=== PATIENT | male | born 1975 | race Two or more races ===

== ENCOUNTER 2016-10-03 23:50 | Emergency (ER) | payer OTHER ==
--- NOTE | 2016-10-04 00:25 | ED Physician Documentation ---
History of Present Illness - Stated complaint Stated Complaint: MALE - Chief complaint Chief Complaint: General - History obtained from History obtained from: Patient - History of Present Illness Timing: Today Pain level now: 10 Improved by: no ameliorating factors Worsened by: no exacerbating factors - Additonal information Additional information: left groin and left testicular pain since 8 PM tonight. Had similar episode yesterday that resolved spontaneously. Denies injury Review of Systems Constitutional: denies: Fever, Chills, Sweats Cardiac: reports: Reviewed and negative Respiratory: reports: Reviewed and negative GI: reports: Nausea. denies: Abdominal Pain, Vomiting, Constipation, Diarrhea : reports: Testicular pain. denies: Dysuria, Frequency, Hematuria Musculoskeletal: denies: Back pain PD PAST MEDICAL HISTORY - Past Medical History Past Medical History: Yes Endocrine/Autoimmune: HyPOthyroidism Psych: Depression, Anxiety, Obsessive compulsive disorder - Past Surgical History Past Surgical History: Yes General: Cholecystectomy HEENT: Tonsil/Adenoidectomy - Present Medications Home Medications: Ambulatory Orders Medication Instructions Recorded Confirmed Alprazolam [Xanax] 0.5 mg PO TID 10/04/16 10/04/16 Buspirone HCl 30 mg PO BID 10/04/16 10/04/16 DULoxetine [Cymbalta] 30 mg PO BID 10/04/16 10/04/16 Dextroamphetamine/Amphetamine 20 mg PO DAILY 10/04/16 10/04/16 [Adderall 20 mg Tablet] Lamotrigine [Lamictal] 200 mg PO DAILY 10/04/16 10/04/16 Levothyroxine Sodium 25 mcg PO DAILY 10/04/16 10/04/16 cloNIDine [Catapres] 0.1 mg PO QPM 10/04/16 10/04/16 oxyCODONE/ACET 5/325 [Percocet 5 1 - 2 each PO Q6H PRN #12 tablet 10/04/16 mg/325 mg] - Allergies Allergies/Adverse Reactions: Allergies Allergy/AdvReac Type Severity Reaction Status Date / Time levofloxacin [From Levaquin] Allergy Hives Verified 10/04/16 00:28 - Living Situation Living Situation: reports: With spouse/s.o. Living Arrangement: reports: At home PD ED PE NORMAL - Vitals Vital signs reviewed: Yes - General General: Alert and oriented X 3, Well developed/nourished, Other (mild-moderate painful distress) - HEENT HEENT: Moist mucous membranes - Cardiac Cardiac: RRR, No murmur - Respiratory Respiratory: No respiratory distress, Clear bilaterally - Abdomen Abdomen: Soft, Non tender, Non distended - Back Back: No CVA TTP - Derm Derm: Normal color, Warm and dry, No rash - Extremities Extremities: Normal ROM s pain PD ED PE EXPANDED - Male Male : Normal Exam, Testes descended nivia, Normal lie/cremastaric, Tenderness ( mild left testicular tenderness), Concrete Block Layer present. No: Skin lesions, Testicular Mass Results - Vitals Vitals: Vital Signs - 24 hr 10/03/16 10/04/16 10/04/16 23:54 00:00 00:51 Temperature 36.0 C L 36.8 C Heart Rate 51 L 53 L 63 Respiratory 18 20 16 Rate Blood Pressure 139/91 H 139/94 H 136/72 H O2 Saturation 100 100 100 10/04/16 10/04/16 10/04/16 01:05 01:30 03:31 Temperature Heart Rate 57 L 63 51 L Respiratory 16 16 16 Rate Blood Pressure 116/71 132/74 H 141/94 H O2 Saturation 100 100 98 10/04/16 03:50 Temperature 36.5 C Heart Rate 68 Respiratory 16 Rate Blood Pressure 143/83 H O2 Saturation 100 Oxygen O2 Source Room air - Labs Labs: Laboratory Tests 10/04/16 10/04/16 10/04/16 00:05 00:25 00:25 WBC 11.3 H RBC 4.26 L Hgb 13.6 L Hct 39.3 L MCV 92.2 MCH 32.0 H MCHC 34.8 RDW 13.3 Plt Count 313 MPV 6.5 L Neut # 7.8 H Lymph # 2.4 Clarke # 0.9 Eos # 0.1 Baso # 0.1 Absolute Nucleated RBC 0.00 Nucleated RBCs 0.0 Sodium 139 Potassium 3.5 Chloride 104 Carbon Dioxide 24 Anion Gap 11.0 BUN 22 H Creatinine 1.4 H Estimated GFR (MDRD) 55 L Glucose 108 H Calcium 9.4 Total Bilirubin 0.4 AST 22 ALT 21 Alkaline Phosphatase 71 Total Protein 6.9 Albumin 4.4 Globulin 2.5 Albumin/Globulin Ratio 1.8 Lipase 51 Urine Color YELLOW Urine Clarity CLEAR Urine pH 6.0 Ur Specific [place] >=1.030 H Urine Protein NEGATIVE Urine Glucose (UA) NEGATIVE Urine Ketones TRACE Urine Occult Blood NEGATIVE Urine Nitrite NEGATIVE Urine Bilirubin NEGATIVE Urine Urobilinogen 0.2 (NORMAL) Ur Leukocyte Esterase NEGATIVE Ur Microscopic Review NOT INDICATED Urine Culture Comments NOT INDICATED - Rads (name of study) testicular US Radiology: Prelim report reviewed, See rad report PD MEDICAL DECISION MAKING - ED course Complexity details: reviewed results, re-evaluated patient, considered differential, d/w patient, d/w family ED course: minimal relief with dilaudid IV 1mg x 2 doses, but patient reported near- resolution subsequent to IV toradol (1 out of 0-10 pain). No apparent etiology on emergent testing and reevaluation (re-exam of left groin and abdomen) reveals no tenderness. Departure - Departure Disposition: 01 Home, Self Care Clinical Impression: Left groin pain Condition: Good Instructions: ED Testicular Pain [facility] Follow-Up: Suzette Kay DO [Primary Care Provider] - (Call to arrange for next available appointment) Prescriptions: oxyCODONE/ACET 5/325 [Percocet 5 mg/325 mg] 1 - 2 each PO Q6H PRN #12 tablet PRN Reason: Pain Discharge Date/Time: 10/04/16 04:17
[2016-10-04 00:37] LABS: BASOPHILS # (AUTO) 0.1 10^3/uL (0.0-0.1); BASOPHILS % (AUTO) 0.6 %; EOSINOPHILS # (AUTO) 0.1 10^3/uL (0.0-0.7); EOSINOPHILS % (AUTO) 0.7 %; HCT - HEMATOCRIT 39.3 % (42.0-52.0); HGB - HEMOGLOBIN 13.6 g/dL (14.0-18.0); LYMPHOCYTES # (AUTO) 2.4 10^3/uL (1.5-3.5); LYMPHOCYTES % (AUTO) 21.1 %; MEAN CORPUSCULAR HGB CONC 34.8 g/dL (32.0-36.0); MEAN CORPUSCULAR VOLUME 92.2 fL (80.0-94.0); MEAN PLATELET VOLUME 6.5 fL (7.4-11.4); MONOCYTES # (AUTO) 0.9 10^3/uL (0.0-1.0); MONOCYTES % (AUTO) 8.3 %; NEUTROPHILS # (AUTO) 7.8 10^3/uL (1.5-6.6); NEUTROPHILS % (AUTO) 69.3 %; RED BLOOD COUNT 4.26 10^6/uL (4.70-6.10); RED CELL DISTRIBUTION WIDTH 13.3 % (12.0-15.0); UNCORRECTED WHITE BLOOD COUNT 11.3 x10^3/uL; WHITE BLOOD COUNT 11.3 x10^3/uL (4.8-10.8)
[2016-10-04] MEDS ORDERED: ONDANSETRON 4 MG/2 ML VIAL IVP STA (00:38)
[2016-10-04] MEDS ORDERED: HYDROmorphone 1 MG/ML SYRINGE IVP STA ×2 (00:38→01:36)
[2016-10-04] MEDS ORDERED: HYDROmorphone 1 MG/ML SYRINGE ONE ×2 (00:41→01:33)
[2016-10-04] MEDS ORDERED: ONDANSETRON 4 MG/2 ML VIAL ONE (00:42)
[2016-10-04 00:43] LABS: ALBUMIN/GLOBULIN RATIO 1.8 (1.0-2.2); BILIRUBIN,TOTAL 0.4 mg/dL (0.2-1.0); CALCIUM 9.4 mg/dL (8.5-10.3); CREATININE 1.4 mg/dL (0.6-1.2); POTASSIUM 3.5 mmol/L (3.5-5.0); TOTAL PROTEIN 6.9 g/dL (6.7-8.2)
[2016-10-04 00:44] LABS: BILIRUBIN,URINE NEGATIVE (NEGATIVE)
[2016-10-04 00:46] LABS: UA CHARGE (STRIP ONLY) YES; UR CULTURE IF IND NOT INDICATED
[2016-10-04] MEDS ORDERED: SODIUM CHLORIDE 0.9% 1,000 ML IV ONE (00:48)
[2016-10-04] MEDS ORDERED: KETOROLAC 30 MG/ML VIAL ONE (03:27)
[2016-10-04] MEDS ORDERED: KETOROLAC 60 MG/2 ML VIAL IVP STA (03:27)
--- NOTE | 2016-10-04 03:28 | Ultrasound Preliminary Report ---
Exam: US Testicle w/Doppler IMPRESSION: 1. Testes appear normal. No torsion seen. 2. Small left hydrocele. [facility] SITE ID: [id number]
--- NOTE | 2016-10-04 03:31 | Ultrasound Report ---
EXAM: SCROTAL ULTRASOUND EXAM DATE: 10/04/2016 01:31 AM. CLINICAL HISTORY: Left testicular pain. COMPARISON: None. TECHNIQUE: Real-time scanning was performed with static images obtained, including color-flow. FINDINGS: Right: Testis: 5.4 x 2.7 x 3.4 cm. Normal size and echotexture. No mass, calcification, or abnormal blood fl ow. Epididymis: 1.1 x 1.0 cm. Normal size and echotexture. No mass or abnormal blood flow. Cyst measuring 5 x 4 x 4 mm. Hydrocele: None. Varicocele: None. Left: Testis: 4.8 x 3.2 x 3.0 cm. Normal size and echotexture. No mass, calcification, or abnormal blood fl ow. Epididymis: 1.8 x 0.8 cm. Normal size and echotexture. No mass or abnormal blood flow. Hydrocele: Small amount. Varicocele: None. Other: None. IMPRESSION: 1. Testes appear normal. No torsion seen. 2. Small left hydrocele. [facility] Referring Provider Line: [phone] SITE ID: [id number]
[2016-10-04 03:53] VITALS: BP 143/83
[2016-10-04] MEDS ORDERED: oxyCODONE/ACET 5/325 Prepack 4 PO ONE (04:02)
[2016-10-04] MEDS ORDERED: oxyCODONE/ACET 5/325 Prepack 4 PO STA (04:22)
== END 2016-10-04 04:17 | disposition home or self-care (01) ==
LOC: ED 23:50
DX: R10.32 Left lower quadrant pain (principal); N50.812 Left testicular pain; R11.0 Nausea; E03.9 Hypothyroidism, unspecified
CPT/HCPCS: 36415; 76870; 80053; 81003; 83690; 85025; 93975; 96361; 96374; 96375; 96376; 99284; J1170; 81001; 87086

== ENCOUNTER 2016-10-05 04:38 | Outpatient (CLI) | payer OTHER | END 2016-10-05 04:39 | disposition critical access hospital (66) | DX: R10.30 Lower abdominal pain, unspecified (principal) | CPT/HCPCS: A0425; A0429 ==

== ENCOUNTER 2016-10-05 05:03 | Emergency (ER) | payer OTHER ==
[2016-10-05] MEDS ORDERED: KETOROLAC 30 MG/ML VIAL ONE (06:00)
[2016-10-05] MEDS ORDERED: ONDANSETRON 4 MG/2 ML VIAL ONE (06:01)
[2016-10-05] MEDS ORDERED: HYDROmorphone 1 MG/ML SYRINGE ONE (06:01)
[2016-10-05] MEDS: HYDROmorphone 1 MG/ML SYRINGE IVP STA (06:02)
[2016-10-05] MEDS: SODIUM CHLORIDE 0.9% 1,000 ML IV ONE (06:03)
[2016-10-05] MEDS: KETOROLAC 60 MG/2 ML VIAL IVP STA (06:03)
[2016-10-05] MEDS: ONDANSETRON 4 MG/2 ML VIAL IVP STA (06:03)
== END 2016-10-05 07:54 | disposition home or self-care (01) ==
DX: N20.1 Calculus of ureter (principal); E03.9 Hypothyroidism, unspecified; Z90.49 Acquired absence of other specified parts of digestive tract; Z98.84 Bariatric surgery status
CPT/HCPCS: 36415; 74176; 80053; 81003; 83690; 85025; 96361; 96374; 96375; 99284; 99285; J1170

== ENCOUNTER 2019-01-12 07:04 | Outpatient (CLI) | payer OTHER ==
--- NOTE | 2019-01-12 14:01 | CT Report ---
Reason: NODULE ON LUNG,RIGTH 6 MM NODULE Procedure Date: 01/12/2019 Accession Number: [id number] / [id number] Procedure: CT - CHEST WO CPT Code: FULL RESULT: EXAM: CT CHEST EXAM DATE: 01/12/2019 07:45 AM. CLINICAL HISTORY: Nodule on lung, right 6 mm nodule. COMPARISONS: None. TECHNIQUE: Routine helical CT imaging was performed through the chest. IV contrast: None. Reconstructions: Coronal and sagittal. In accordance with CT protocol optimization, one or more of the following dose reduction techniques were utilized for this exam: automated exposure control, adjustment of mA and/or KV based on patient size, or use of iterative reconstructive technique. FINDINGS: Lungs/Pleura: There is no significant background pulmonary emphysema. There is no lobar consolidation. There is no airway thickening or bronchiectasis. There is no pleural effusion or pneumothorax. There are bilateral pulmonary nodules which measure up to 5 mm. Right upper lobe: 4 mm nodule image 18 series 4 perifissural. 4 mm nodule image 32. 2 mm nodule image 31. Right middle lobe: 3 mm nodule image 28. 4 mm nodule image 33. 5 mm nodule image 32. Right lower lobe: 2 mm nodule image 35. 4 mm nodule image 33. Left upper lobe: 3 mm nodule image 9. Left lower lobe: 3 mm nodule, major fissure, image 28. 3 mm nodule image 41. 3 mm nodule image 43. 2 mm nodule image 45. Mediastinum: There are prominent mediastinal lymph nodes which measure up to 1.1 cm in short axis as seen on image 32 series 6 in a pretracheal node. There is no hilar lymphadenopathy. There is no pericardial effusion. Bones: Unremarkable. Visualized Abdomen: Status post cholecystectomy and gastric surgery. Other: None. IMPRESSION: Pulmonary nodules measuring up to 5 mm as described. Recommend follow-up of the described nodule(s) according to the following guidelines: Fleischner Society Recommendations 2017 MacMahon et al. Radiology 2017 Solid Nodules-Low Risk Patients: <6 mm (single or multiple) - No routine follow-up* Solid Nodules-High Risk Patients: <6 mm (single or multiple) -Optional CT at 12 months* *Nodules < 6mm do not require routine follow-up, but suspicious nodule morphology, upper lobe location, or both may warrant 12 month follow-up [facility]
== END 2019-01-12 07:05 | disposition home or self-care (01) ==
LOC: DI 07:04
PROVIDERS: ATTEND Specialist
DX: R91.8 Other nonspecific abnormal finding of lung field (principal)
CPT/HCPCS: 71250

== ENCOUNTER 2019-05-18 07:59 | Outpatient (CLI) | payer OTHER ==
--- NOTE | 2019-05-18 17:28 | XRAY Report ---
Reason: CHRONIC LOW BACK PAIN Procedure Date: 05/18/2019 Accession Number: [id number] / [id number] Procedure: XR - Thoracic Spine 2 View CPT Code: FULL RESULT: EXAM: THORACIC SPINE RADIOGRAPHY EXAM DATE: 05/18/2019 08:43 AM. CLINICAL HISTORY: CHRONIC BACK PAIN. COMPARISON: CHEST W/O 01/12/2019 7:12 AM. TECHNIQUE: 3 views. FINDINGS: Alignment: No spondylolisthesis. Minimal dextro scoliosis apex T7. Bones: No fractures or bone lesions. Degenerative vertebral body spurring present. Disks: Normal. Disk heights are maintained. Soft Tissues: Right upper quadrant surgical clips. IMPRESSION: Mild degenerative change thoracic spine without superimposed acute findings. [facility]
--- NOTE | 2019-05-19 10:50 | XRAY Report ---
Reason: CHRONIC LOW BACK PAIN Procedure Date: 05/18/2019 Accession Number: [id number] / [id number] Procedure: XR - Lumbar Spine 2 View CPT Code: FULL RESULT: EXAM: LUMBOSACRAL SPINE RADIOGRAPHY EXAM DATE: 05/18/2019 08:44 AM. CLINICAL HISTORY: Chronic low back pain. COMPARISONS: CT ABDOMEN PELVIS WO CON 12/27/2018 10:14 AM. TECHNIQUE: 3 views. FINDINGS: Alignment: . No spondylolisthesis or scoliosis. Bones: Five [id number] lumbar vertebral bodies are present. No fractures or bone lesions. Disks: Normal. Disk heights are maintained. Facets: Moderate hypertrophic changes at the facet articulations bilaterally L5-S1 Sacroiliac Joints: Unremarkable. Soft Tissues: Normal. The visualized bowel gas pattern is normal. Surgical clips indicate previous cholecystectomy. IMPRESSION: Moderate degenerative changes at the bilateral facet articulations of L5-S1. Examination elsewhere unremarkable. [facility]
== END 2019-05-18 08:00 | disposition home or self-care (01) ==
LOC: DI 07:59
PROVIDERS: ATTEND Physician Assistant Medical
DX: M47.817 Spondylosis without myelopathy or radiculopathy, lumbosacral region (principal)
CPT/HCPCS: 72070; 72100

== ENCOUNTER 2019-05-22 21:19 | Emergency (ER) | payer OTHER ==
--- NOTE | 2019-05-22 23:04 | ED Physician Documentation ---
PD HPI SKIN - Stated complaint Stated Complaint: MED REACTION, HIGH BP - Chief complaint Chief Complaint: Allergic Rx - History obtained from History obtained from: Patient - History of Present Illness Timing - onset: Today Timing - duration: Hours (10) Timing - details: Abrupt onset Pain level now: 9 Location: Other (Circumferential around the head and down the back of the neck) Quality / character: No: Itchy, Painful, Burning, Discolored, Raised, Vesicular, Crusted, Swelling, Draining, Other Associated symptoms: Headache. No: Fever, Myalgias Similar symptoms before: Has not had sx before Recently seen: Not recently seen - Additional information Additional information: This a 44-year-old man who presents with his complaints that he had a severe headache that developed today around noon. He was standing talking with a friend outside when it started and he said it felt like a "brain freeze". It encompassed his entire head and is continued to be a throbbing spasming type pain that he rates it a 9 out of 10 ever since then. Is now radiating down the back of his neck as well. He took his blood pressure this evening is 164/100 and repeated at 145/96 and called his primary care provider told him to come into the emergency department to be evaluated. He was thinking it might be a reaction to meloxicam which she took for the first time about 4 hours prior to the onset of these symptoms. He denied any blurry vision has not had any tinnitus. No nausea or vomiting. Denies numbness or tingling or weakness into the arms or legs. Does have some mild photophobia. No fever and no recent illness. Denies prior history of headaches and no family history of headache or aneurysm. Review of Systems Constitutional: denies: Fever Eyes: reports: Photophobia. denies: Loss of vision Ears: denies: Loss of hearing, Tinnitus/ringing Nose: denies: Rhinorrhea / runny nose, Congestion Throat: denies: Sore throat Cardiac: denies: Palpitations Respiratory: denies: Dyspnea, Cough GI: denies: Nausea, Vomiting : denies: Dysuria Musculoskeletal: reports: Neck pain Neurologic: reports: Headache, Head injury (Sometime last week he got hit in the right forehead with a tree branch as he was cutting firewood). denies: Generalized weakness, Focal weakness, Numbness, Difficulty speaking, Near syncope, Syncope, LOC PD PAST MEDICAL HISTORY - Past Medical History Past Medical History: Yes Cardiovascular: None Respiratory: None Neuro: None Endocrine/Autoimmune: HyPOthyroidism GI: Other : Kidney stones HEENT: None Psych: Depression, Anxiety, Obsessive compulsive disorder Musculoskeletal: None Derm: None - Past Surgical History Past Surgical History: Yes General: Cholecystectomy, Gastric surgery HEENT: Tonsil/Adenoidectomy - Present Medications Home Medications: Ambulatory Orders Medication Instructions Recorded Confirmed Buspirone HCl 30 mg PO BID 10/04/16 10/05/16 DULoxetine [Cymbalta] 30 mg PO BID 10/04/16 10/05/16 Dextroamphetamine/Amphetamine 20 mg PO DAILY 10/04/16 10/05/16 [Adderall 20 mg Tablet] Levothyroxine Sodium 25 mcg PO DAILY 10/04/16 10/05/16 cloNIDine [Catapres] 0.1 mg PO QPM 10/04/16 10/05/16 lamoTRIgine [Lamictal] 200 mg PO DAILY 10/04/16 10/05/16 oxyCODONE/ACET 5/325 [Percocet 5 1 - 2 each PO Q6H PRN #12 tablet 10/04/16 10/05/16 mg/325 mg] Promethazine [Phenergan] 25 - 50 mg PO Q6H PRN #10 tab 10/05/16 Propranolol [Inderal] 20 mg PO BID 10/05/16 10/05/16 Tamsulosin [Flomax] 0.4 mg PO DAILY #5 capsule 10/05/16 oxyCODONE/ACET 5/325 [Percocet 5 1 - 2 tab PO Q4-6H PRN #20 tablet 10/05/16 mg/325 mg] - Allergies Allergies/Adverse Reactions: Allergies Allergy/AdvReac Type Severity Reaction Status Date / Time levofloxacin [From Levaquin] Allergy Hives Verified 05/22/19 21:31 - Social History Does the pt smoke?: No Smoking Status: Never smoker Does the pt drink ETOH?: No Does the pt have substance abuse?: No - Immunizations Immunizations are current?: Yes - POLST Patient has POLST: No PD ED PE NORMAL - Vitals Vital signs reviewed: Yes - General General: Alert and oriented X 3, Well developed/nourished, Other (He is not in acute distress but he seems a little agitated) - HEENT HEENT: Atraumatic, PERRL, EOMI, Moist mucous membranes, Pharynx benign - Neck Neck: Supple, no meningeal sign, No adenopathy - Cardiac Cardiac: RRR - Respiratory Respiratory: No respiratory distress - Derm Derm: Normal color, Warm and dry, No rash - Neuro Neuro: Alert and oriented X 3, solid plasterer 2-12 intact, No motor deficit, No sensory deficit, Normal speech, Other (Nrnafr-[id number] is intact) - Psych Psych: Normal affect Results - Vitals Vitals: Vital Signs - 24 hr 05/22/19 05/23/19 05/23/19 21:23 00:01 01:30 Temperature 36.7 C 36.5 C Heart Rate 56 L 49 L 48 L Respiratory 14 14 18 Rate Blood Pressure 131/92 H 144/92 H 123/83 H O2 Saturation 100 100 97 05/23/19 02:30 Temperature Heart Rate 56 L Respiratory 14 Rate Blood Pressure 113/65 O2 Saturation 100 Oxygen O2 Source Room air - Labs Labs: Microbiology 05/23/19 02:43 CSF Culture - Preliminary Cerebral Spinal Fluid Laboratory Tests 05/23/19 05/23/19 02:43 02:43 Fluid Source CSF Fluid Color COLORLESS Fluid Clarity CLEAR Fluid WBC 7 Fluid RBC 113 CSF Color COLORLESS CSF Clarity CLEAR Xanthrochromic ABSENT CSF WBC 4 CSF RBC 4 H CSF Cell Count Tube # CSF TUBE# 3 CSF Glucose 54 CSF Total Protein 47 H Procedures - Lumbar Puncture Position: Sitting Location: L3-L4, L4-L5, Midline approach Anesthesia: Local lidocaine CSF: Clear Other: Sterile prep and drape, Other (The initial attempt while sitting before I even had a chance to finish my prep the patient had a syncopal episode. His heart rate was in the 40s he was diaphoretic. We laid him on his right side and attempts in that position were unsuccessful. Patient was given a liter of fluids subsequently felt like he could sit again so I attempted again with him in the sitting position at the L3-L4 site with return of clear fluid. He tolerated this very well and in fact stated that his headache was completely resolved following the lumbar puncture.) PD MEDICAL DECISION MAKING - ED course Complexity details: reviewed results, re-evaluated patient, d/w patient, d/w family ED course: Patient was initially offered an IV and something for the headache which he declined. CT was negative however I am concerned about the possibility of subarachnoid hemorrhage. Meloxicam only causes headache and 2% of patients and his history is concerning enough that I have recommended a lumbar puncture. Risk and benefits were discussed and the patient consented to the procedure. The lumbar puncture showed 4 red blood cells in tube 3 so I called the lab and asked him to do a cell count on tube 1 and it was 113 red blood cells. I did have some difficulty with the tap so I am not surprised that there was a little bit of blood, but felt reassured that the count had declined significantly from Tube 1 to Tube 3. Cultures were obtained. His headache was 100% resolved after Dilaudid and he had a little Ativan to help him relax during the procedure. Results were discussed with him and his and he is discharged home. At this point I would have to recommend that he not take the meloxicam again. If his headache returns or becomes persistent, worsening or other problems arise he should be reevaluated. He states understanding. Departure - Departure Disposition: 01 Home, Self Care Clinical Impression: Headache Qualifiers: Headache type: unspecified Headache chronicity pattern: acute headache Intractability: not intractable Qualified Code(s): R51 - Headache Condition: Good Instructions: ED Cephalgia Unspecified Follow-Up: China Ritter PA-C [Primary Care Provider] - Comments: Home tonight and rest. He should not go to school tomorrow. Make sure you drink plenty of water. Return if you have continuing headache or other problems arise. Forms: Activity restrictions Discharge Date/Time: 05/23/19 04:56
--- NOTE | 2019-05-22 23:46 | CT Report ---
Reason: headache Procedure Date: 05/22/2019 Accession Number: [id number] / [id number] Procedure: CT - HEAD WO CPT Code: FULL RESULT: EXAM: CT HEAD WITHOUT CONTRAST. EXAM DATE: 05/22/2019 11:32 PM. CLINICAL HISTORY: Headache. COMPARISON: None. TECHNIQUE: Multiaxial CT images were obtained from the foramen magnum to the vertex. Reformats: Sagittal and coronal. IV contrast: None. In accordance with CT protocol optimization, one or more of the following dose reduction techniques were utilized for this exam: automated exposure control, adjustment of mA and/or KV based on patient size, or use of iterative reconstructive technique. FINDINGS: Parenchyma: No intraparenchymal hemorrhage. No evidence of mass, midline shift, or CT findings of infarction. Hood-white differentiation is distinct. Extraaxial Spaces: Normal for age.No subdural or epidural collections identified. Ventricles: Normal in size and position. Sinuses and Orbits: Imaged paranasal sinuses, orbits, and mastoids show no significant abnormality. Bones: No evidence of fracture or calvarial defect. Other: None. IMPRESSION: No acute intracranial abnormality. [facility]
[2019-05-23] MEDS ORDERED: LORazepam 2 MG/ML VIAL IVP STA (00:21)
[2019-05-23] MEDS ORDERED: HYDROmorphone 1 MG/ML CARPUJECT IVP STA ×2 (00:21→01:29)
[2019-05-23] MEDS ORDERED: ONDANSETRON 4 MG/2 ML VIAL IVP STA (00:21)
[2019-05-23] MEDS ORDERED: SODIUM CHLORIDE 0.9% 1,000 ML IV ONE (01:29)
[2019-05-23] MEDS ORDERED: LIDOCAINE 1% 2 ML VIAL ONE (02:25)
[2019-05-23 03:09] LABS: CSF - GLUCOSE 54 mg/dL (45-70)
[2019-05-23] MEDS ORDERED: LIDOCAINE 1% 2 ML VIAL TD STA (03:09)
[2019-05-23 03:13] LABS: CSF TUBE # CSF TUBE# 3
[2019-05-23 03:14] LABS: CLARITY,CSF CLEAR (CLEAR); COLOR,CSF COLORLESS (COLORLESS); CSF XANTHOCHROMIA ABSENT (ABSENT)
[2019-05-23 03:20] LABS: RED BLOOD CELL,CSF 4 /mm^3 (0-1); WHITE BLOOD CELL,CSF 4 /mm^3 (0-5)
[2019-05-23 03:34] VITALS: BP 113/65
[2019-05-23 04:14] LABS: BF COLOR COLORLESS; CC,BF RBC 113 /mm^3
[2019-05-23 04:15] LABS: BF SOURCE CSF
== END 2019-05-23 04:56 | disposition home or self-care (01) ==
LOC: ED 21:19
DX: R51 Headache (principal); R55 Syncope and collapse
CPT/HCPCS: 62270; 70450; 82945; 84157; 87070; 87205; 89051; 96361; 96374; 96375; 99284; J1170; J2060

== ENCOUNTER 2019-06-29 07:44 | Outpatient (CLI) | payer OTHER ==
--- NOTE | 2019-06-30 07:49 | CT Report ---
Reason: BILAT PULMONARY NODULES Procedure Date: 06/29/2019 Accession Number: [id number] / [id number] Procedure: CT - CHEST WO CPT Code: Final Report FULL RESULT: EXAM: CT CHEST EXAM DATE: 06/29/2019 08:06 AM. CLINICAL HISTORY: BILAT PULMONARY NODULES. COMPARISONS: CHEST W/O 01/12/2019 7:12 AM. TECHNIQUE: Routine helical CT imaging was performed through the chest. IV contrast: None. Reconstructions: Coronal and sagittal. In accordance with CT protocol optimization, one or more of the following dose reduction techniques were utilized for this exam: automated exposure control, adjustment of mA and/or KV based on patient size, or use of iterative reconstructive technique. FINDINGS: Lungs/Pleura: Bilateral scattered subcentimeter pulmonary micronodules are all stable compared to prior. No new nodules seen. No new airspace consolidation. No pleural effusions, pleural thickening, pleural calcification. No pneumothorax. Mediastinum: Unremarkable visualized thyroid. Normal heart size. No pericardial effusion. No enlarged mediastinal or hilar lymph nodes. Bones: Unremarkable. Visualized Abdomen: Small hiatal hernia. Gastric bypass is evident. Other: None. IMPRESSION: 1. Bilateral subcentimeter scattered pulmonary micronodules are stable compared to prior. No new pulmonary nodules nor suspiciousconsolidation. Single additional noncontrast chest CT to document one-year stability of these nodules could be considered per Fleischner Society guidelines. 2. No mediastinal or hilar lymphadenopathy. Recommend follow-up of the described nodule(s) according to the following guidelines: Fleischner Society Recommendations 2017 MacMahon et al. Radiology 2017 Solid Nodules-Low Risk Patients: <6 mm (single or multiple) - No routine follow-up* 6-8 mm (single) -CT at 6-12 months, then consider CT at 18-24 months 6-8mm (multiple) -CT at 3-6 months, then consider at CT 18-24 months >8 mm (single) -Consider CT, PET/CT, or tissue sampling at 3 months >8 mm (multiple) -CT at 3-6 months, then consider CT at 18-24 months Solid Nodules-High Risk Patients: <6 mm (single or multiple) -Optional CT at 12 months* 6-8 mm (single) -CT at 6-12 months, then CT at 18-24 months 6-8mm (multiple) -CT at 3-6 months, then CT at 18-24 months >8 mm (single) -Consider CT, PET/CT, or tissue sampling at 3 months >8 mm (multiple) -CT at 3-6 months, then at 18-24 months *Nodules < 6mm do not require routine follow-up, but suspicious nodule morphology, upper lobe location, or both may warrant 12 month follow-up . [facility]
== END 2019-06-29 07:45 | disposition home or self-care (01) ==
LOC: DI 07:44
PROVIDERS: ATTEND Physician Assistant Medical
DX: R91.8 Other nonspecific abnormal finding of lung field (principal)
CPT/HCPCS: 71250

== ENCOUNTER 2021-01-07 09:34 | Outpatient (CLI) | payer OTHER ==
--- NOTE | 2021-01-07 11:05 | XRAY Report ---
PROCEDURE: Lumbar Spine 2 View INDICATIONS: LOW-MID BACK PAIN TECHNIQUE: 2 views of the lumbar spine were acquired. COMPARISON: None. FINDINGS: Bones: 5 [id number] vertebrae are present. There is normal bony alignment. No vertebral body compression fractures. No suspicious bony lesions. Mild degenerative disease at L2-L3 and L3-L4. Soft tissues: Overlying bowel gas pattern is normal. No suspicious soft tissue calcifications. IMPRESSION: Mild degenerative disc disease in lumbar spine. Reviewed by: Kylee Noel MD on 01/07/2021 11:04 AM PDT Approved by: Kylee Noel MD on 01/07/2021 11:04 AM PDT Station ID: [id number]
--- NOTE | 2021-01-07 16:51 | XRAY Report ---
PROCEDURE: Thoracic Spine 2 View INDICATIONS: LOW-MID BACK PAIN TECHNIQUE: 3 views of the thoracic spine were acquired. COMPARISON: None. FINDINGS: Bones: No fractures or dislocations. No suspicious bony lesions. 12 pairs of ribs are noted, and a ppear intact where visualized. Soft tissues: No paravertebral stripe thickening. IMPRESSION: Unremarkable exam. Reviewed by: Mitzi Williamson MD on 01/07/2021 4:50 PM PDT Approved by: Mitzi Williamson MD on 01/07/2021 4:50 PM PDT Station ID: [id number]
--- NOTE | 2021-01-07 16:51 | XRAY Report ---
PROCEDURE: Hips 2V BILAT INDICATIONS: BILATERAL HIP PAIN TECHNIQUE: 2 views of the hip were acquired. COMPARISON: None FINDINGS: Bones: No fractures or dislocations. No suspicious bony lesions. The visualized pelvic ring appear s intact. Minimal bilateral hip joint space narrowing. Minimal periarticular osteophytes are present . Soft tissues: No suspicious soft tissue calcifications or masses. IMPRESSION: Minimal bilateral degenerative hip joint space narrowing, suggestive of early arthritic change. Reviewed by: Mitzi Williamson MD on 01/07/2021 4:49 PM PDT Approved by: Mitzi Williamson MD on 01/07/2021 4:49 PM PDT Station ID: [id number]
== END 2021-01-07 09:35 | disposition home or self-care (01) ==
LOC: DI 09:34
PROVIDERS: ATTEND Physician Assistant Medical
DX: M51.36 Other intervertebral disc degeneration, lumbar region (principal); M16.0 Bilateral primary osteoarthritis of hip

== ENCOUNTER 2023-03-14 23:09 | Emergency (ER) | payer OTHER ==
[2023-03-14] MEDS ORDERED: KETOROLAC 15 MG/ML VIAL IVP STA (23:20)
[2023-03-14] MEDS ORDERED: SODIUM CHLORIDE 0.9% 1,000 ML IV STA (23:20)
[2023-03-14] MEDS ORDERED: ONDANSETRON 4 MG/2 ML VIAL IVP STA (23:20)
[2023-03-14 23:30] LABS: BASOPHILS # (AUTO) 0.1 10^3/uL (0.0-0.1); BASOPHILS % (AUTO) 0.5 %; EOSINOPHILS # (AUTO) 0.1 10^3/uL (0.0-0.7); EOSINOPHILS % (AUTO) 1.3 %; HCT - HEMATOCRIT 47.7 % (42.0-52.0); HGB - HEMOGLOBIN 15.9 g/dL (14.0-18.0); LYMPHOCYTES # (AUTO) 2.1 10^3/uL (1.5-3.5); LYMPHOCYTES % (AUTO) 22.1 %; MEAN CORPUSCULAR HEMOGLOBIN 30.9 pg (27.0-31.0); MEAN CORPUSCULAR HGB CONC 33.3 g/dL (32.0-36.0); MEAN CORPUSCULAR VOLUME 92.8 fL (80.0-94.0); MEAN PLATELET VOLUME 8.7 fL (7.4-11.4); MONOCYTES # (AUTO) 0.7 10^3/uL (0.0-1.0); NEUTROPHILS # (AUTO) 6.6 10^3/uL (1.5-6.6); NEUTROPHILS % (AUTO) 68.9 %; PLT - PLATELET COUNT 360 10^3/uL (130-450); RED BLOOD COUNT 5.14 10^6/uL (4.70-6.10); RED CELL DISTRIBUTION WIDTH 12.1 % (12.0-15.0); WHITE BLOOD COUNT 9.5 x10^3/uL (4.8-10.8)
--- NOTE | 2023-03-14 23:30 | ED Physician Documentation ---
PD HPI ABD PAIN - Stated complaint Stated Complaint: N/V, STOMACH PX - Chief complaint Chief Complaint: Abd Pain - History obtained from History obtained from: Patient - Additional information Additional information: 47yM with pmh kidney stones p/w L flank pain moving to groin X 2 hours with associated nbnb n/v. denies fever, urinary sx, injury. PD PAST MEDICAL HISTORY - Past Medical History Cardiovascular: None Respiratory: None Neuro: None Endocrine/Autoimmune: HyPOthyroidism GI: Other : Kidney stones HEENT: None Psych: Depression, Anxiety, Obsessive compulsive disorder Musculoskeletal: None Derm: None - Past Surgical History Past Surgical History: Yes General: Cholecystectomy, Gastric surgery HEENT: Tonsil/Adenoidectomy - Present Medications Home Medications: Ambulatory Orders Medication Instructions Recorded Confirmed lamoTRIgine [Lamictal] 200 mg PO DAILY 10/04/16 03/14/23 Dexmethylphenidate HCl [Focalin Xr] 30 mg PO DAILY 03/14/23 03/14/23 hydrOXYzine HCL [Hydroxyzine HCl] 25 mg PO QPM PRN 03/14/23 03/14/23 traZODone [Desyrel] 50 mg PO QPM PRN 03/14/23 03/14/23 Ketorolac [Toradol] 10 mg PO Q6H PRN #20 tablet 03/15/23 - Allergies Allergies/Adverse Reactions: Allergies Allergy/AdvReac Type Severity Reaction Status Date / Time levofloxacin [From Levaquin] Allergy Hives Verified 03/14/23 23:12 - Social History Does the pt smoke?: No Smoking Status: Never smoker Does the pt drink ETOH?: No Does the pt have substance abuse?: No - Immunizations Immunizations are current?: Yes - POLST Patient has POLST: No PD ED PE NORMAL - Vitals Vital signs reviewed: Yes - General General: Alert and oriented X 3, No acute distress, Well developed/nourished - HEENT HEENT: Atraumatic, PERRL, EOMI - Neck Neck: Supple, no meningeal sign - Cardiac Cardiac: RRR - Respiratory Respiratory: No respiratory distress, Clear bilaterally - Abdomen Abdomen: Non tender, Non distended, Other (suprapubic discomfort to palpation) - Back Back: No CVA TTP - Derm Derm: Normal color, Warm and dry - Extremities Extremities: No deformity - Neuro Neuro: Alert and oriented X 3 - Psych Psych: Normal mood, Normal affect Results - Vitals Vitals: Vital Signs - 24 hr 03/14/23 03/14/23 03/15/23 23:12 23:36 00:01 Temperature 36.5 C Heart Rate 66 49 L 73 Respiratory 18 16 16 Rate Blood Pressure 150/90 H 138/88 H 136/98 H O2 Saturation 98 99 100 Oxygen O2 Source Room air - Labs Labs: Laboratory Tests 03/14/23 03/14/23 03/14/23 23:24 23:24 23:24 WBC 9.5 RBC 5.14 Hgb 15.9 Hct 47.7 MCV 92.8 MCH 30.9 MCHC 33.3 RDW 12.1 Plt Count 360 MPV 8.7 Neut # (Auto) 6.6 Lymph # (Auto) 2.1 [place] # (Auto) 0.7 Eos # (Auto) 0.1 Baso # (Auto) 0.1 Absolute Nucleated RBC 0.00 Nucleated RBC % 0.0 Sodium 139 Potassium 3.7 Chloride 100 L Carbon Dioxide 28 Anion Gap 11.0 BUN 24 H Creatinine 1.4 H Estimated GFR (MDRD) 54 L Glucose 120 H Calcium 10.1 Total Bilirubin 0.3 AST 16 ALT 13 Alkaline Phosphatase 88 Total Protein 7.9 Albumin 5.0 Globulin 2.9 Albumin/Globulin Ratio 1.7 Lipase 56 Urine Color YELLOW Urine Clarity CLEAR Urine pH 5.0 Ur Specific [place] >=1.030 H Urine Protein NEGATIVE Urine Glucose (UA) NEGATIVE Urine Ketones NEGATIVE Urine Occult Blood NEGATIVE Urine Nitrite NEGATIVE Urine Bilirubin NEGATIVE Urine Urobilinogen 0.2 (NORMAL) Ur Leukocyte Esterase NEGATIVE Ur Microscopic Review NOT INDICATED Urine Culture Comments NOT INDICATED PD Medical Decision Making - ED course ED course: 47yM with pmh kidney stones s/p L flank pain radiating to the groin, concerning for kidney stones. AAA unlikely given benign appearing and hx of stones. plan to obtain CBC, abdominal panel, u/a, check CT a/p and treat nausea/pain with IV zofran and IV toradol. Pain resolved with toradol. rx sent to pharmacy. CT without acute findings on wet read aside from R intrarenal stone. u/a negative with no blood. unlikely this is kidney stone mediated given normal u/a. labwork otherwise benign with cre 1.4, which is at baseline per my review of prior labwork. exam performed with DORI Storm as underwriting internship - BL cremaster intact. Suspect L hydrocoele. uncircumcised. nontender on exam and penis and testicles. normal ext male genitalia. Advised outpatient f/u with urology. return precautions given. rx sent to pharmacy for toradol and zofran. Departure - Departure Disposition: Home, Self Care Clinical Impression: Abdominal pain, Vomiting, Back pain Condition: Stable Prescriptions: Ketorolac [Toradol] 10 mg PO Q6H PRN #20 tablet PRN Reason: Pain Comments: You were seen in the emergency department for groin and back pain. Your kidney function and urine tests looked good. Your CT showed a stone sitting inside the right kidney but I do not see anything moving and since your urine had no blood in it, it is unlikely your symptoms were due to kidney stones. Please follow-up with a primary care provider or urologist for ultrasound of the testicles, and return to the emergency department if you have any new or worsening symptoms or other concerns. Prescription for toradol sent to [facility] in [place]. Forms: PCP List
[2023-03-14 23:31] LABS: GLUCOSE, URINE (UA) NEGATIVE (NEGATIVE); KETONES,URINE (UA) NEGATIVE (NEGATIVE); LEUKOCYTE ESTERASE, URINE NEGATIVE (NEGATIVE); NITRITE,URINE NEGATIVE (NEGATIVE); OCCULT BLOOD,URINE NEGATIVE (NEGATIVE); PROTEIN,URINE NEGATIVE (NEGATIVE); UROBILINOGEN,URINE 0.2 (NORMAL) E.U./dL (NORMAL)
[2023-03-14 23:38] LABS: BILIRUBIN,URINE NEGATIVE (NEGATIVE); CLARITY,URINE CLEAR (CLEAR); ICTOTEST,URINE NEGATIVE
[2023-03-14 23:47] LABS: ALBUMIN/GLOBULIN RATIO 1.7 (1.0-2.2); BILIRUBIN,TOTAL 0.3 mg/dL (0.2-1.0); CALCIUM 10.1 mg/dL (8.5-10.3); CREATININE 1.4 mg/dL (0.6-1.3); POTASSIUM 3.7 mmol/L (3.5-4.5); TOTAL PROTEIN 7.9 g/dL (6.4-8.9)
[2023-03-15 00:24] VITALS: BP 121/81; O2SAT 98
--- NOTE | 2023-03-15 00:27 | CT Report ---
PROCEDURE: ABDOMEN/PELVIS WO INDICATIONS: L flank pain, hx stones TECHNIQUE: A CT scan of the abdomen and pelvis was performed without the use of intravenous contrast. Images we re recorded and evaluated at appropriate window settings. Reformats: coronal and sagittal. For radiat ion dose reduction, the following was used: automated exposure control, adjustment of mA and/or kV ac cording to patient size. COMPARISON: CT abdomen/pelvis 10/05/2016. FINDINGS: Image quality: Excellent. Lung bases and heart: Unremarkable. Liver: No solid mass. Gallbladder and biliary tree: Surgically absent. No biliary dilation, accounting for post-cholecystec mis state. Spleen: No splenomegaly. Pancreas: No pancreatic ductal dilation. Adrenals: No adrenal nodule. Kidneys and ureters: Small right lower pole renal calculus measuring approximately 3 mm. No right hyd ronephrosis. Mild left hydroureteronephrosis. A 2 mm calculus is seen at the left distal ureter adjac ent to the ureterovesicular junction. Bowel and peritoneum: No bowel distension. No pathologic free fluid. Lymph nodes: No central or retroperitoneal adenopathy. Vessels: No infrarenal aortic aneurysm. PELVIS Reproductive organs: Unremarkable. Bladder: Bladder is decompressed and not well evaluated. Pelvic lymph nodes: No pelvic adenopathy by size criteria. Bones: No aggressive osseous abnormality. Degenerative changes are seen in the bilateral sacroiliac j oints and lower lumbar spine. Other: No significant ventral or inguinal hernia. IMPRESSION: 1.Left distal ureteral 2 mm calculus at the ureterovesicular junction with mild left hydroureteroneph rosis. 2.Nonobstructing 3 mm calculus at the inferior pole of right kidney. No right hydronephrosis. Reviewed by: Mahad Byers MD on 03/15/2023 12:26 AM PDT Approved by: Mahad Byers MD on 03/15/2023 12:26 AM PDT Station ID: [id number]
== END 2023-03-15 00:27 | disposition home or self-care (01) ==
LOC: ED 23:09
DX: N13.2 Hydronephrosis with renal and ureteral calculous obstruction (principal)
CPT/HCPCS: 36415; 80053; 81001; 81003; 83690; 85025; 87086; 96374; 96375; 99283